=== PATIENT | male | born 1985 | race Caucasian/White ===

== ENCOUNTER 2024-08-07 22:07 | Emergency (ER) | payer MEDICAID ==
[~2024-08-07] VITALS: Ht 177.8 cm; Wt 114.0 kg
[2024-08-07 22:19] VITALS: BP 151/105; PULSE 62; RESP 16; TEMP 98.5; O2SAT 98
== END 2024-08-07 23:00 | disposition left against medical advice (07) ==
LOC: ER 22:07
DX: F41.9 Anxiety disorder, unspecified (principal); R07.89 Other chest pain; I10 Essential (primary) hypertension
CPT/HCPCS: 93005; 99283

== ENCOUNTER 2025-01-15 23:21 | Emergency (ER) | payer OTHER, MEDICAID ==
[~2025-01-15] VITALS: Ht 182.9 cm; Wt 112.0 kg
[2025-01-15 23:25] VITALS: BP 156/100; PULSE 81; RESP 18; TEMP 36.7; O2SAT 97
[2025-01-16] MEDS ORDERED: METOPROLOL TARTRATE 50MG TABLET PO ONE
[2025-01-16] MEDS ORDERED: LOSARTAN 25 MG TABLET PO ONE
== END 2025-01-16 00:34 ==
LOC: ER 23:21
DX: R07.89 Other chest pain (principal); I10 Essential (primary) hypertension; Z86.59 Personal history of other mental and behavioral disorders
CPT/HCPCS: 99283